=== PATIENT | male | born 1965 | race Caucasian/White ===

== ENCOUNTER 2019-06-05 23:45 | Emergency (ER) | payer MEDICAID ==
[~2019-06-05] VITALS: Ht 182.9 cm; Wt 93.0 kg
[2019-06-06 00:10] VITALS: BP_SYST 157
[2019-06-06] MEDS ORDERED: NACL 0.9% 1,000 ML IV ONE (00:45)
[2019-06-06] MEDS ORDERED: MORPHINE 4 MG/ML INJ. SYRINGE IVP ONE (00:45)
[2019-06-06 01:05] LABS: BASOPHILS % (AUTO) 0.9 % (0.0-2.0); EOSINOPHILS # (AUTO) 0.1 K/uL (0.0-0.4); EOSINOPHILS % (AUTO) 1.3 % (0.0-4.0); HEMOGLOBIN 15.1 g/dL (14.0-18.0); LYMPHOCYTES # (AUTO) 1.4 K/uL (1.0-5.5); MEAN CORPUSCULAR HEMOGLOBIN 34 pg (27-31); MEAN CORPUSCULAR HGB CONC 35 % (32-36); MEAN CORPUSCULAR VOLUME 97 fL (79.0-98.0); MONOCYTES # (AUTO) 0.4 K/uL (0.0-1.0); MONOCYTES % (AUTO) 9.9 % (1.7-9.3); NEUTROPHILS % (AUTO) 50.9 % (40.0-70.0); PLATELET COUNT (AUTO) 122 K/uL (130-430); RED BLOOD CELL COUNT(AUTO) 4.42 MIL/uL (4.2-6.2); RED CELL DISTRIBUTION WIDTH 12.7 % (9.0-15.0); WHITE BLOOD COUNT (AUTO) 3.9 K/uL (4.8-10.8)
[2019-06-06 01:24] LABS: ALBUMIN 3.6 g/dL (3.4-4.8); CALCIUM 8.8 mg/dL (8.4-11.0); CREATININE 1.21 mg/dL (0.55-1.30); TOTAL BILIRUBIN 1.2 mg/dL (0.0-1.0)
[2019-06-06 02:38] VITALS: BP_SYST 146
== END 2019-06-06 02:42 | disposition home or self-care (01) ==
LOC: SED 23:45
DX: K52.89 Other specified noninfective gastroenteritis and colitis (principal); K40.90 Unilateral inguinal hernia, without obstruction or gangrene, not specified as recurrent
CPT/HCPCS: 36415; 74176; 80053; 85025; 93005; 96374; 99284; J2270; J7030

== ENCOUNTER 2019-06-15 01:44 | Emergency (ER) | payer MEDICAID ==
[~2019-06-15] VITALS: Ht 182.9 cm; Wt 92.1 kg
[2019-06-15 01:50] VITALS: BP_SYST 143
[2019-06-15] MEDS ORDERED: MORPHINE 4 MG/ML INJ. SYRINGE IM ONE (03:00)
[2019-06-15 04:40] VITALS: BP_SYST 138
== END 2019-06-15 04:40 | disposition home or self-care (01) ==
LOC: SED 01:44
DX: K40.90 Unilateral inguinal hernia, without obstruction or gangrene, not specified as recurrent (principal)
CPT/HCPCS: 96372; 99283; J2270